=== PATIENT | male | born 1960 | race American Indian/Alaskan Native ===

== ENCOUNTER 2018-07-21 12:32 | Inpatient (IN) | payer SELFPAY ==
[2018-07-21 14:12] LABS: HEMOGLOBIN 14.4 g/dL (12.0-18.0); LYMPH # 0.7 K/uL (1.0-4.3); LYMPH % 16.3 % (20.0-40.0); MEAN CELL VOLUME 84.9 fL (80.0-94.0); MEAN CORPUSCULAR HEMOGLOBIN 27.4 pg (27.0-31.0); MEAN CORPUSCULAR HGB CONC 32.3 g/dL (33.0-37.0); MEAN PLATELET VOLUME 8.9 fL (7.2-11.7); MONO # 0.3 K/uL (0.0-0.8); MONO % 7.7 % (0.0-10.0); NRBC % 0.1 % (0.0-2.0); RBC 5.24 Mil/uL (4.40-5.90); RED CELL DISTRIBUTION WIDTH 16.6 % (11.5-14.5)
[2018-07-21 14:27] LABS: ALB/GLOB RATIO 1.4 (1.0-2.1); ALBUMIN 3.8 g/dL (3.5-5.0); ALT/SGPT 19 U/L (21-72); AST/SGOT 25 U/L (17-59); BLOOD UREA NITROGEN 14 mg/dL (9-20); GFR NON-AFRICAN AMERICAN > 60
[2018-07-21 14:47] LABS: SQUAMOUS EPITHIAL < 1 /hpf (0-5); URINE BILIRUBIN NEGATIVE (NEGATIVE); URINE BLOOD 1+ (NEGATIVE); URINE CLARITY Clear (Clear); URINE COLOR Amber (YELLOW); URINE GLUCOSE (UA) NORMAL (Normal); URINE LEUKOCYTE ESTERASE NEG Leu/uL (Negative); URINE PROTEIN NEGATIVE (NEGATIVE)
[2018-07-21 15:09] LABS: BARBITURATES, UR NEGATIVE (NEGATIVE); BENZODIAZEPINES, UR NEGATIVE (NEGATIVE); PHENCYCLIDINE, UR NEGATIVE (NEGATIVE)
--- NOTE | 2018-07-21 15:45 | C.PDOC ---
History Of Present Illness 57 year old male presents to the ED requesting alcohol, heroin and cocaine detox. Patient states his last use was last night. He denies suicidal/homicidal ideation. Time Seen by Provider: 07/21/18 13:27 Chief Complaint (Nursing): Substance Abuse History Per: Patient History/Exam Limitations: no limitations Onset/Duration Of Symptoms: Hrs Current Symptoms Are (Timing): Still Present Modifying Factor(s): Alcohol, Cocaine, Other (heroin ) Associated Symptoms: denies: Suicidal Thoughts, Suicidal Plan Involuntary Hold By: None Recent travel outside of the [place]: No Additional History Per: Patient Past Medical History Reviewed: Historical Data, Nursing Documentation, Vital Signs Vital Signs: Last Vital Signs Temp 98.5 F 07/21/18 15:02 Pulse 86 07/21/18 15:02 Resp 14 07/21/18 15:02 BP 157/94 H 07/21/18 15:02 Pulse Ox 98 07/21/18 15:02 - Medical History PMH: No Chronic Diseases Surgical History: No Surg Hx Family History: States: Unknown Family Hx - Social History Hx Alcohol Use: Yes Hx Substance Use: Yes (hwroin, cocaine) - Immunization History Hx Tetanus Toxoid Vaccination: No Hx Influenza Vaccination: No Hx Pneumococcal Vaccination: No Review Of Systems Psych: Positive for: Other (alcohol, cocaine, heroin detox ). Negative for: [place] icidal ideation Physical Exam - Physical Exam Appears: Non-toxic, No Acute Distress Skin: Normal Color, Warm, Dry Head: Atraumatic, Normacephalic Eye(s): bilateral: Normal Inspection Oral Mucosa: Moist Neck: Supple Chest: Symmetrical, No Deformity, No Tenderness Cardiovascular: Rhythm Regular, No Murmur Respiratory: Normal Breath Sounds, No Rales, No Rhonchi, No Wheezing Extremity: Normal ROM, Capillary Refill (less than 2 seconds ) Neurological/Psych: Oriented x3, Normal Speech, Normal Cognition ED Course And Treatment - Laboratory Results Result Diagrams: 07/21/18 14:08 07/21/18 14:08 Lab Results: Total Bilirubin 1.6 mg/dL (0.2-1.3) H 07/21/18 14:08 AST 25 U/L (17-59) 07/21/18 14:08 ALT 19 U/L (21-72) L 07/21/18 14:08 Alkaline Phosphatase 76 U/L (38-126) 07/21/18 14:08 Total Protein 6.6 g/dL (6.3-8.3) 07/21/18 14:08 Albumin 3.8 g/dL (3.5-5.0) 07/21/18 14:08 Globulin 2.8 gm/dL (2.2-3.9) 07/21/18 14:08 Albumin/Globulin Ratio 1.4 (1.0-2.1) 07/21/18 14:08 Urine Color Renetta (YELLOW) 07/21/18 14:29 Urine Clarity Clear (Clear) 07/21/18 14:29 Urine pH 5.0 (5.0-8.0) 07/21/18 14:29 Ur Specific [place] 1.025 (1.003-1.030) 07/21/18 14:29 Urine Protein Negative mg/dL (NEGATIVE) 07/21/18 14:29 Urine Glucose (UA) Normal mg/dL (Normal) 07/21/18 14:29 Urine Ketones 2+ mg/dL (NEGATIVE) H 07/21/18 14:29 Urine Blood 1+ (NEGATIVE) H 07/21/18 14:29 Urine Nitrate Negative (NEGATIVE) 07/21/18 14:29 Urine Bilirubin Negative (NEGATIVE) 07/21/18 14:29 Urine Urobilinogen 4.0 mg/dL (0.2-1.0) 07/21/18 14:29 Ur Leukocyte Esterase Neg Corinne/uL (Negative) 07/21/18 14:29 Urine WBC (Auto) < 1 /hpf (0-5) 07/21/18 14:29 Urine RBC (Auto) 3 /hpf (0-3) 07/21/18 14:29 Ur Squamous Epith Cells < 1 /hpf (0-5) 07/21/18 14:29 O2 Sat by Pulse Oximetry: 98 (on RA ) Pulse Ox Interpretation: Normal Progress Note: Bloodwork and urinalysis ordered. Medical Decision Making Medical Decision Making: Patient is medically cleared for psych/detox admission Disposition - Disposition Disposition: HOSPITALIZED Disposition Time: 16:23 Condition: GOOD - Clinical Impression Clinical Impression: Opiate dependence - PA / NURSE OFFICE / Resident Statement MD/DO has reviewed & agrees with the documentation as recorded. - Scribe Statement The provider has reviewed the documentation as recorded by the Scribe (Mame Henning) All medical record entries made by the Scribe were at my direction and personally dictated by me. I have reviewed the chart and agree that the record accurately reflects my personal performance of the history, physical exam, medical decision making, and the department course for this patient. I have also personally directed, reviewed, and agree with the discharge instructions and disposition.
[2018-07-21 15:47] LABS: OPIATES, UR POSITIVE (NEGATIVE)
--- NOTE | 2018-07-21 17:18 | PCM.BM ---
<Maricruz Pablo - Last Filed: 07/21/18 17:17> Treatment Plan Problems - Problems identified on initial assessmt Defensive Coping Date Initiated: 07/21/18 Time Initiated: 17:17 Assessment reference: NA Status: Active Knowledge Deficit: Substance Use Date Initiated: 07/21/18 Time Initiated: 17:17 Assessment reference: NA Status: Active Denial Date Initiated: 07/21/18 Time Initiated: 17:18 Assessment reference: NA Status: Active Treatment assets and liabiliti Patient Assests: ADL independent, negotiates basic needs, cognitively intact Patient Liabilities: substance abuse - Milieu Protocol Maintain good personal hygiene: daily Encourage regular showers, daily Remind patient to perform daily oral care, daily Assist patient to perform ADL's Conduct patient checks and document Observation sheet: Q15 minutes Maintain personal safety: every shift Educate patient to report safety concerns to staff, every shift Monitor environment for contraband/sharps Medication safety: Monitor for expected outcome, potential side effects: every shift, Assess barriers to learning: every shift, Assess readiness for medication education: every shift <Jenna Stout - Last Filed: 07/23/18 14:42> - Diagnosis (1) Alcohol use disorder, severe, dependence Status: Acute Interventions: 07/23/18 14:42 * Assess 7x/week regarding severity of withdrawal * Educate regarding risks, benefits, side effects and alternatives of medications * Use Motivational Interviewing for abstinence * Use CBT for relapse prevention * Medication management for withdrawal symptoms * Encourage medication assisted treatment * (2) Opiate dependence Status: Acute Interventions: 07/23/18 14:42 * Assess 7x/week regarding severity of withdrawal * Educate regarding risks, benefits, side effects and alternatives of medications * Use Motivational Interviewing for abstinence * Use CBT for relapse prevention * Medication management for withdrawal symptoms * Encourage medication assisted treatment *
[2018-07-21] MEDS ORDERED: Aluminum Hydroxide/Magnesium Hydroxide Susp (30 mL) PO PRN (19:23)
--- NOTE | 2018-07-22 13:21 | PCM.PSYCH ---
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 He admits to using 8-10 bags of heroin, 2 pints of liquor and 4 x 6-pack beers. He also used cocaine on and off. He has hx of "bad" withdrawals, including DTs (year?) and seizures (very recently) He was in detox and rehab long ago, ie 2007. He feels depressed, has vague passive SI but no plan, has anxiety too but no AVH/del and no previous proper tx. No medical hx Family psych positive for depression and anxiety Current Medications: Active Medications Generic Name Dose Route Start Last Admin Trade Name Freq PRN Reason Stop Dose Admin Al Hydrox/Mg Hydrox/Simethicone 30 ml 07/21/18 19:23 Maalox 30 Ml PO TID PRN Indigestion / Heartburn Chlordiazepoxide 25 mg 07/21/18 16:47 07/22/18 12:47 Librium PO 25 mg Q4H PRN Administration Alcohol Withdrawal Chlordiazepoxide 25 mg 07/22/18 12:26 Librium PO 07/26/18 17:59 Q6H JERRY Taper Clonidine HCl 0.1 mg 07/21/18 16:47 07/22/18 06:00 Catapres PO 0.1 mg Q4H PRN Administration Symptoms of alcohol withdrawl Dicyclomine HCl 10 mg 07/21/18 19:23 Bentyl PO Q6 PRN Muscle spasm Influenza Virus Vaccine 60 mcg 07/24/18 10:00 Flucelvax Quad [id number] Syr IM 07/24/18 10:01 .ONCE ONE Loperamide HCl 2 mg 07/21/18 19:23 Imodium PO Q8 PRN Diarrhea Methadone HCl 20 mg 07/22/18 13:12 Methadone PO 07/27/18 09:59 Q24H JERRY Taper Methadone HCl 5 mg 07/22/18 18:00 Methadone PO 07/25/18 18:01 QPM JERRY Ondansetron HCl 4 mg 07/21/18 19:23 Zofran Tab PO Q8 PRN Nausea/Vomiting Pneumococcal Polyvalent Vaccine 0.5 ml 07/24/18 10:00 Pneumovax 23 Vaccine IM 07/24/18 10:01 .ONCE ONE Pseudoephedrine HCl 60 mg 07/21/18 19:23 Sudafed Tab PO QID PRN Nasal/Sinus Congestion Trazodone HCl 100 mg 07/22/18 12:26 Desyrel PO HS PRN Insomnia Past Psychiatric History - Past Psychiatric History Previous Treatment History: Intensive Outpatient Pertinent Medical Hx (Current Medical&Sleep Prob, Allergies): Allergies Allergy/AdvReac Type Severity Reaction Status Date / Time No Known Allergies Allergy Verified 07/21/18 12:34 No Known Home Med 07/21/18 Review of Systems - Psychiatric Psychiatric: Abnormal Sleep Pattern, Anhedonia, Anxiety, Depression, Difficulty Concentrating. absent: Homicidal Ideation, Paranoia, Suicidal Ideation Mental Status Examination - Personal Presentation Personal Presentation: Looks older than stated age - Affect Affect: Broad - Motor Activity Motor Activity: Calm - Reliability in Providing Information Reliability in Providing Information: Good - Speech Speech: Organized - Mood Mood: Depressed, Anxious - Formal Thought Process Formal Thought Process: No Impairment - Cognitive Functions Orientation: Person, Place, Situation, Time Sensorium: Alert Attention/Concentration: Attentive Estimate of Intelligence: Average Judgement: Intact, as evidence by: Insight regarding need for hospitalization Memory: Recent intact, as evidence by: Ability to recall events of the day, Remote intact, as evidenced by: Abilit to recall sig. life events - Risk Risk: Withdrawal, Diminished functioning - Strength & Assets Inventory Strength & Assets Inventory: Cooperative - Limitations Limitations: Other
[2018-07-23] MEDS ORDERED: Succinylcholine Chloride 20 mg/ml Syr (5 ml) IV ONE (08:46)
[2018-07-24] MEDS ORDERED: Influenza Vaccine 60 mcg/0.5 mL SYR (4YR UP) IM ONE (10:00)
[2018-07-24] MEDS ORDERED: Pneumococcal 23-Valent Vaccine IM ONE (10:00)
--- NOTE | 2018-07-24 15:10 | RAD ---
Date of service: 07/24/2018 HISTORY: rehab admission COMPARISON: No prior. TECHNIQUE: Chest PA and lateral FINDINGS: LUNGS: No active pulmonary disease. PLEURA: No significant pleural effusion identified. No pneumothorax apparent. CARDIOVASCULAR: No aortic atherosclerotic calcification present. Normal cardiac size. No pulmonary vascular congestion. OSSEOUS STRUCTURES: No significant abnormalities. VISUALIZED UPPER ABDOMEN: Normal. OTHER FINDINGS: None. IMPRESSION: No active disease.
--- NOTE | 2018-07-25 15:02 | PCM.PYCHPN ---
Psychiatric Progress Note - Psychiatric Progress Note Patient seen today, length of contact: 19 min Patient Chief Complaint: "I am better" Problems Identified/Issues Discussed: The pt is seen, chart reviewed, case is discussed with staff. The pt is compliant with medications and reports no side-effects. Symptoms are improving but needs more time to stabilize and to avoid relapse. Pt attends groups and activities. Support given, psycho-education provided. After care discussed. Medication Change: Yes (detox changes daily) Medical Record Reviewed: Yes Mental Status Examination - Cognitive Function Orientation: Person, Place, Situation, Time Memory: Intact Attention: WNL Concentration: Poor Association: WNL Fund of Knowledge: WNL - Mood Mood: Depressed, Anxious - Affect Affect: Broad - Speech Speech: Appropriate - Formal Thought Process Formal Thought Process: No Impairment - Suicidal Ideation Suicidal Ideation: No - Homicidal Ideation Homicidal Ideation: No Goal/Treatment Plan - Goal/Treatment Plan Need for Continued Stay: Discharge may exacerbated symptoms, Severe functional impairment Progress Toward Problem(s) and Goals/Treatment Plan: Continue medications Support and psychoeducation daily Attend groups and activities daily Individual therapy After care planning by RAINA and the team
--- NOTE | 2018-07-26 09:08 | PCM.PYCHDC ---
Mental Status Examination - Mental Status Examination Orientation: Person Discharge Summary - Discharge Note Consultations:: List each consultation separately and include: 1. Reason for request. 2. Findings. 3. Follow-up Summary of Hospital Course include:: 1. Description of specific treatment plan utilized for patients during their course of treatmen. 2. Summarize the time- course for resolution of acute symptoms and/or regressed behaviors. 3. Describe issues identified and worked on during hospitalization. 4. Describe medication utilized. 5. Describe medical problems identified and treated. 6. 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 He admits to using 8-10 bags of heroin, 2 pints of liquor and 4 x 6-pack beers. He also used cocaine on and off. He has hx of "bad" withdrawals, including DTs (year?) and seizures (very recently) He was in detox and rehab long ago, ie 2007. He feels depressed, has vague passive SI but no plan, has anxiety too but no AVH/del and no previous proper tx. No medical hx Family psych positive for depression and anxiety [facility] in [place] - Diagnosis (1) Alcohol use disorder, severe, dependence Current Visit: Yes Status: Acute (2) Opiate dependence Current Visit: Yes Status: Acute - Final Diagnosis (DSM 5) Condition upon Discharge: GOOD Disposition: HOME/ ROUTINE Follow-up Treatment Plan: Continue medications Support and psychoeducation daily Attend groups and activities daily Individual therapy After care planning by RAINA and the team Prescriptions/Medication Reconciliation: traZODone [Desyrel] 100 mg PO HS PRN #30 tab PRN Reason: Insomnia
[2018-07-26 11:12] VITALS: BP 144/88; PULSE 100; RESP 18; TEMP 98; O2SAT 89
--- NOTE | 2018-07-26 12:15 | CARD ---
APPROVED REPORT Date of service: 07/25/2018 EKG Measurement Heart [id number] <Conclusion> Normal sinus rhythm Minimal voltage criteria for LVH, may be normal variant Anterolateral infarct, age undetermined Abnormal ECG
== END 2018-07-26 11:15 | disposition home or self-care (01) | DRG 895 ==
LOC: C.ER 12:32 → C.7D 16:23
PROVIDERS: ADMIT Psychiatry & Neurology Psychiatry; ATTEND Psychiatry & Neurology Psychiatry
PROC: HZ2ZZZZ Detoxification Services for Substance Abuse Treatment (ICD-10-PCS; principal; 2018-07-21)
PROC: HZ56ZZZ Individual Psychotherapy for Substance Abuse Treatment, Psychoeducation (ICD-10-PCS; 2018-07-21)
DX: F10.20 Alcohol dependence, uncomplicated (principal); F11.20 Opioid dependence, uncomplicated; F32.9 Major depressive disorder, single episode, unspecified; F14.90 Cocaine use, unspecified, uncomplicated; F17.210 Nicotine dependence, cigarettes, uncomplicated; Z81.8 Family history of other mental and behavioral disorders